=== PATIENT | female | born 1985 | race Caucasian/White ===

== ENCOUNTER 2021-06-01 03:46 | Emergency (ER) | payer BC ==
[2021-06-01] MEDS ORDERED: KETOROLAC TROMETHAMINE 60 MG/2 ML VIAL IM ONE (03:59)
[2021-06-01] MEDS ORDERED: KETOROLAC TROMETHAMINE 60 MG/2 ML VIAL ONE (03:59)
[2021-06-01 04:08] VITALS: BP 136/79; PULSE 88; TEMP 98.6; BMI 43.8
== END 2021-06-01 04:37 | disposition home or self-care (01) ==
LOC: FER 03:46
PROC: 3E0233Z Introduction of Anti-inflammatory into Muscle, Percutaneous Approach (ICD-10-PCS; principal; 2021-06-01)
DX: G43.909 Migraine, unspecified, not intractable, without status migrainosus (principal)
CPT/HCPCS: 99283-25